=== PATIENT | male | born 1970 | race Caucasian/White ===

== ENCOUNTER 2020-09-11 15:09 | Inpatient (IN) ==
[2020-09-11] MEDS ORDERED: SODIUM CHLORIDE 0.9% 1,000 ML IV STA (18:00)
[2020-09-11 18:38] LABS: Hematocrit 41.5 VOL% (42.0-52.0); Hemoglobin 14.5 GM/DL (14.0-18.0); Immature Granulocytes % 0.7 %; Immature Granulocytes Absolute 0.05 #; Lymphocytes # 0.6 10*3/uL (1.4-4.0); Lymphocytes % 7.9 % (21.2-54.2); Mean Corpuscular HGB Conc 34.9 GM/DL (32-36); Mean Corpuscular Volume 82.5 FL (87-102); Mean Platelet Volume 11.3 FL (9.6-12.0); Monocytes % 5.8 % (1.7-12.7); Neutrophils % 85.6 % (38.7-73.9); Platelet Count 277 T/CUMM (130-400); Red Blood Count 5.03 MC/CUMM (3.8-5.5); Red Cell Distribution Width 12.4 % (9.3-17.3); White Blood Count 7.6 T/CUMM (4-12)
[2020-09-11 19:16] LABS: Albumin 2.9 G/DL (3.4-5.0); Bilirubin,Total 1.2 MG/DL (0.20-1.00); Calcium 8.8 MG/DL (8.5-10.1); Ferritin 2112.7 ng/ml (26-388); Osmolality,Calculated 272.2 MOS/KG (273-304); Potassium 4.6 MMOL/L (3.5-5.1); Total Protein 7.5 G/DL (6.4-8.2)
[2020-09-11] MEDS ORDERED: cefTRIAXone 1,000 MG in SODIUM CHLORIDE 0.9% 100 ML IV STA (20:29)
[2020-09-11] MEDS ORDERED: AZITHROMYCIN INJ 500 MG in SODIUM CHLORIDE 0.9% 250 ML IV STA (20:29)
[2020-09-11] MEDS ORDERED: cefTRIAXone 1,000 MG VIAL ONE (20:46)
[2020-09-11] MEDS ORDERED: DEXTROSE 50% 25 GM/50 ML VIAL IV PRN ×2 (20:57)
[2020-09-11] MEDS ORDERED: ONDANSETRON 4 MG/2 ML VIAL IV PRN (20:57)
[2020-09-11] MEDS ORDERED: ZALEPLON 5 MG CAPSULE PO PRN (20:57)
[2020-09-11] MEDS ORDERED: MELATONIN 3 MG TABLET PO PRN (20:57)
[2020-09-11] MEDS ORDERED: GLUCAGON 1 MG VIAL IM PRN ×2 (20:57)
[2020-09-11] MEDS ORDERED: DEXAMETHASONE 10 MG/1 ML VIAL IV ONE (21:59)
[2020-09-12] MEDS: ASCORBIC ACID 500 MG TABLET PO SCH ×3 (00:25→21:30)
[2020-09-12] MEDS: FAMOTIDINE 20 MG TABLET PO SCH ×3 (00:25→21:30)
[2020-09-12] MEDS: INSULIN REGULAR 100 UNIT/ML SUBCUT SCH ×6 (00:26→21:30)
[2020-09-12] MEDS ORDERED: REMDESIVIR 200 MG in SODIUM CHLORIDE 0.9% 210 ML IV ONE (01:30)
[2020-09-12 07:25] LABS: Ferritin 1859.2 ng/ml (26-388)
[2020-09-12 07:36] LABS: Albumin 2.6 G/DL (3.4-5.0); Bilirubin,Total 0.7 MG/DL (0.20-1.00); Osmolality,Calculated 281.7 MOS/KG (273-304); Potassium 4.7 MMOL/L (3.5-5.1); Total Protein 6.1 G/DL (6.4-8.2)
[2020-09-12 08:28] LABS: Albumin 2.7 G/DL (3.4-5.0); Bilirubin,Direct 0.21 MG/DL (0.0-0.20); Bilirubin,Indirect 0.7 MG/DL (0.0-1.0); Bilirubin,Total 0.9 MG/DL (0.20-1.00); Total Protein 6.3 G/DL (6.4-8.2)
[2020-09-12] MEDS: CHOLECALCIFEROL 1,000 UNIT TABLET PO SCH (08:36)
[2020-09-12] MEDS: DEXAMETHASONE 4 MG/1 ML VIAL IV SCH (08:36)
[2020-09-12] MEDS: CETIRIZINE 10 MG TABLET PO SCH (08:37)
[2020-09-12] MEDS: ZINC GLUCONATE 50 MG TABLET PO SCH (08:37)
[2020-09-12] MEDS: cefTRIAXone 1,000 MG in SODIUM CHLORIDE 0.9% 100 ML IV SCH (08:37)
[2020-09-12] MEDS: AZITHROMYCIN 250 MG TABLET PO SCH (08:37)
[2020-09-12] MEDS: FENOFIBRATE 145 MG TABLET PO SCH (16:56)
[2020-09-12] MEDS: ALBUTEROL INHALER 18 GM INH SCH (21:30)
[2020-09-13] MEDS: ALBUTEROL INHALER 18 GM INH SCH ×4 (00:40→21:13)
[2020-09-13 07:07] LABS: Basophils % 0.2 % (0.0-0.8); Eosinophils % 0.1 % (0.00-10.9); Hematocrit 38.6 VOL% (42.0-52.0); Hemoglobin 13.7 GM/DL (14.0-18.0); Immature Granulocytes % 1.6 %; Immature Granulocytes Absolute 0.18 #; Lymphocytes # 1.4 10*3/uL (1.4-4.0); Lymphocytes % 12.2 % (21.2-54.2); Mean Corpuscular HGB Conc 35.5 GM/DL (32-36); Mean Corpuscular Volume 81.6 FL (87-102); Mean Platelet Volume 11.4 FL (9.6-12.0); Monocytes % 6.7 % (1.7-12.7); Neutrophils % 79.2 % (38.7-73.9); Platelet Count 359 T/CUMM (130-400); Red Blood Count 4.73 MC/CUMM (3.8-5.5); Red Cell Distribution Width 12.4 % (9.3-17.3); White Blood Count 11.4 T/CUMM (4-12)
[2020-09-13 07:25] LABS: VLDL Cholesterol 37.6 MG/DL
[2020-09-13 07:28] LABS: Albumin 2.6 G/DL (3.4-5.0); Bilirubin,Total 1.1 MG/DL (0.20-1.00); Calcium 8.6 MG/DL (8.5-10.1); Ferritin 1572.1 ng/ml (26-388); Osmolality,Calculated 283.7 MOS/KG (273-304); Potassium 4.1 MMOL/L (3.5-5.1); Total Protein 6.5 G/DL (6.4-8.2)
[2020-09-13] MEDS: INSULIN REGULAR 100 UNIT/ML SUBCUT SCH ×4 (07:30→21:13)
[2020-09-13 08:16] LABS: Anisocytosis Slight; Band Neutrophils 9 % (0-10); Lymphocytes 11 % (20-55); Platelet Estimate Normal; Segmented Neutrophils 71 % (50-85); Total Cells Counted 100
[2020-09-13] MEDS: DEXAMETHASONE 4 MG/1 ML VIAL IV SCH (10:05)
[2020-09-13] MEDS: FAMOTIDINE 20 MG TABLET PO SCH ×2 (10:05→21:13)
[2020-09-13] MEDS: AZITHROMYCIN 250 MG TABLET PO SCH (10:05)
[2020-09-13] MEDS: CETIRIZINE 10 MG TABLET PO SCH (10:05)
[2020-09-13] MEDS: ASCORBIC ACID 500 MG TABLET PO SCH ×2 (10:05→21:13)
[2020-09-13] MEDS: ZINC GLUCONATE 50 MG TABLET PO SCH (10:05)
[2020-09-13] MEDS: CHOLECALCIFEROL 1,000 UNIT TABLET PO SCH (10:05)
[2020-09-13] MEDS: cefTRIAXone 1,000 MG in SODIUM CHLORIDE 0.9% 100 ML IV SCH (10:07)
[2020-09-13] MEDS: REMDESIVIR 100 MG in SODIUM CHLORIDE 0.9% 100 ML IV SCH (10:50)
[2020-09-13] MEDS: FENOFIBRATE 145 MG TABLET PO SCH (17:11)
[2020-09-14] MEDS: ALBUTEROL INHALER 18 GM INH SCH ×3 (00:02→14:11)
[2020-09-14 05:29] LABS: Basophils % 0.2 % (0.0-0.8); Eosinophils % 0.1 % (0.00-10.9); Hematocrit 39.4 VOL% (42.0-52.0); Immature Granulocytes % 2.9 %; Immature Granulocytes Absolute 0.33 #; Lymphocytes # 1.8 10*3/uL (1.4-4.0); Lymphocytes % 15.7 % (21.2-54.2); Mean Corpuscular HGB Conc 35.5 GM/DL (32-36); Mean Corpuscular Volume 81.7 FL (87-102); Mean Platelet Volume 11.2 FL (9.6-12.0); Monocytes % 7.1 % (1.7-12.7); Platelet Count 404 T/CUMM (130-400); Red Blood Count 4.82 MC/CUMM (3.8-5.5); Red Cell Distribution Width 12.3 % (9.3-17.3); White Blood Count 11.2 T/CUMM (4-12)
[2020-09-14 06:01] LABS: Albumin 2.7 G/DL (3.4-5.0); Bilirubin,Total 0.6 MG/DL (0.20-1.00); Calcium 8.3 MG/DL (8.5-10.1); Ferritin 1328.6 ng/ml (26-388); Osmolality,Calculated 283.5 MOS/KG (273-304); Potassium 4.4 MMOL/L (3.5-5.1); Total Protein 6.3 G/DL (6.4-8.2)
[2020-09-14 06:29] LABS: Platelet Estimate Normal
[2020-09-14] MEDS: cefTRIAXone 1,000 MG in SODIUM CHLORIDE 0.9% 100 ML IV SCH (08:43)
[2020-09-14] MEDS: DEXAMETHASONE 4 MG/1 ML VIAL IV SCH (08:43)
[2020-09-14] MEDS: AZITHROMYCIN 250 MG TABLET PO SCH (08:44)
[2020-09-14] MEDS: ASCORBIC ACID 500 MG TABLET PO SCH (08:44)
[2020-09-14] MEDS: CETIRIZINE 10 MG TABLET PO SCH (08:44)
[2020-09-14] MEDS: FAMOTIDINE 20 MG TABLET PO SCH (08:44)
[2020-09-14] MEDS: CHOLECALCIFEROL 1,000 UNIT TABLET PO SCH (08:44)
[2020-09-14] MEDS: ZINC GLUCONATE 50 MG TABLET PO SCH (08:44)
[2020-09-14] MEDS: INSULIN REGULAR 100 UNIT/ML SUBCUT SCH ×2 (09:05→12:15)
[2020-09-14] MEDS: REMDESIVIR 100 MG in SODIUM CHLORIDE 0.9% 100 ML IV SCH (10:43)
[2020-09-14 11:45] VITALS: BP 127/76
== END 2020-09-14 14:25 | disposition home or self-care (01) | DRG 177 ==
LOC: N.ED 15:09 → N.EDINP 15:09 → N.2E 23:14
PROVIDERS: ADMIT Internal Medicine; ATTEND Internal Medicine